=== PATIENT | male | born 1940 | race Caucasian/White ===

== ENCOUNTER 2017-07-02 16:02 | Emergency (ER) | payer OTHER ==
[~2017-07-02] VITALS: Ht 180.3 cm; Wt 80.3 kg
[2017-07-02] MEDS ORDERED: KEFLEX500 MG PO (19:14)
[2017-07-02] MEDS ORDERED: TRAMADOL HCL50 MG PO (20:07)
[2017-07-02 20:18] VITALS: BP 132/90
== END 2017-07-02 20:21 | disposition home or self-care (01) ==
LOC: EME 16:02
DX: S51.812A Laceration without foreign body of left forearm, initial encounter (principal); W31.2XXA Contact with powered woodworking and forming machines, initial encounter; Z23 Encounter for immunization; E78.5 Hyperlipidemia, unspecified; I10 Essential (primary) hypertension
CPT/HCPCS: 73090; 80048; 84484; 85027; 85610; 99281; 99284

== ENCOUNTER 2017-07-11 15:24 | Emergency (ER) | payer OTHER ==
[~2017-07-11] VITALS: Ht 175.3 cm; Wt 82.2 kg
[~2017-07-11 15:24] MED LIST: KEFLEX500 MG PO; TRAMADOL HCL50 MG PO
[2017-07-11 15:44] VITALS: BP 167/102
[2017-07-11 16:32] LABS: APPEARANCE CLEAR ((CLEAR)); BILIRUBIN NEGATIVE; BLOOD MODERATE; COLOR YELLOW ((YELLOW)); GLUCOSE (STRIP) NEGATIVE; KETONES NEGATIVE; LEUKOCYTES NEGATIVE; NITRITE NEGATIVE; PROTEIN (STRIP) NEGATIVE; UROBILINOGEN 0.2 MG/DL (0.2-1.0)
[2017-07-11 16:36] LABS: HEMATOCRIT 37.6 % (38.0-50.0); HEMOGLOBIN 13.1 G/DL (12.5-16.6); MCHC 34.8 G/DL (30.0-36.0); MCV 91.7 FL (86-99); PLATELET COUNT 265 K/uL (156-360); RBC DIS.WIDTH-CV 12.9 % (11.8-14.6); RBC DIS.WIDTH-SD 43.5 % (39-53); WHITE BLOOD COUNT 9.8 K/uL (4.1-10.2)
[2017-07-11 16:50] LABS: CHLORIDE 97 mEq/L (99-109); POTASSIUM 4.2 mEq/L (3.7-5.4); SODIUM 129 mEq/L (136-147)
[2017-07-11 16:51] LABS: GLUCOSE 103 mg/dL (70-99)
[2017-07-11 16:51] LABS: BACTERIA NONE SEEN /HPF; EPITHELIAL CELLS NONE SEEN /HPF; MUCUS NONE SEEN /LPF; RED BLOOD CELLS 15-20 /HPF (0-5); UCUL ADDED? NO; WHITE BLOOD CELLS 0-5 /HPF (0-5)
[2017-07-11 16:55] LABS: CREATININE 1.1 mg/dL (0.6-1.3); GFR ESTIMATE (CALCULATED) > 59 mL/min/ (58.99-99999)
[2017-07-11 16:56] LABS: UREA NITROGEN (BUN) 16 mg/dL (9-23)
[2017-07-11] MEDS ORDERED: FLOMAX0.4 MG PO (17:20)
== END 2017-07-11 20:40 | disposition home or self-care (01) ==
LOC: EME 15:24
PROVIDERS: Physician Assistant
DX: R33.9 Retention of urine, unspecified (principal); Z98.890 Other specified postprocedural states; I10 Essential (primary) hypertension; E78.5 Hyperlipidemia, unspecified; K21.9 Gastro-esophageal reflux disease without esophagitis
CPT/HCPCS: 80048; 81003; 85027; 99281; 99284